=== PATIENT | male | born 1990 | race Caucasian/White ===

== ENCOUNTER 2022-11-27 15:50 | Outpatient (REF) | payer OTHER, SELFPAY ==
[2022-11-27 18:10] LABS: MANUAL DIFF FLAG NO
[2022-11-27 18:18] LABS: INTERNATIONAL NORM RATIO 0.9 (0.9-1.1); Prothrombin Time 10.8 SEC (10.0-13.1)
[2022-11-27 18:36] LABS: Basophils Absolute Auto 0.1 X10*3/uL (0.0-0.2); Basophils Percent Auto 1.4 % (0-2); Eosinophils Absolute Auto 0.3 X10*3/uL (0.0-0.4); Eosinophils Percent Auto 6.1 % (0-4); Hematocrit 49.4 % (42.0-52.0); Imm Gran Abs Auto 0.01 X10*3/uL (0.00-0.03); Imm Gran Pct Auto 0.2 % (0.0-0.4); Lymphocytes Absolute Auto 1.5 X10*3/uL (1.2-4.9); Lymphocytes Percent Auto 26.5 % (20-40); Mean Corpuscular HGB Conc 34.4 g/dl (31.0-36.0); Mean Corpuscular Hemoglobin 33.7 pg (27.0-33.0); Mean Corpuscular Volume 97.8 fL (80.0-98.0); Mean Platelet Volume 12.3 fL (9.4-12.4); Monocytes Absolute Auto 0.7 X10*3/uL (0.1-1.2); Monocytes Percent Auto 11.9 % (2-11); Neutrophils Percent Auto 53.9 % (45-73); Platelet Count 236 X10*3/uL (160-400); Red Blood Count 5.05 X10*6/uL (4.60-5.80); Red Cell Distribution Width 12.7 % (11.0-16.0); White Blood Count 5.6 X10*3/uL (4.8-10.8)
[2022-11-27 18:48] LABS: Estimated Average Glucose 82 mg/dL; Hemoglobin A1c % 4.5 %
[2022-11-27 19:06] LABS: Alanine Aminotransferase 86 U/L (0-40); Albumin Level 4.6 g/dL (3.5-5.0); Alkaline Phosphatase 70 U/L (39-117); Amylase 51 U/L (28-100); Anion Gap 10 (12-20); Aspartate Amino Transferase 37 U/L (5-37); Bilirubin Total 0.6 mg/dL (0.0-1.0); Blood Urea Nitrogen 9 mg/dL (9-16); Calcium 10.1 mg/dL (8.4-10.2); Carbon Dioxide 31 mmol/L (22-29); Chloride 102 mmol/L (96-108); Estimated Glomerular Filt Rate > 60; Gamma Glutamyl Transpeptidase 111 U/L (11-51); Glucose Random 93 mg/dL (60-115); Iron 121 mcg/dL (45-160); Lipase 32 U/L (8-78); Magnesium 2.2 mg/dL (1.6-2.6); Percent Iron Saturation 37 % (15-50); Potassium 5.1 mmol/L (3.3-5.1); Sodium 138 mmol/L (135-145); Total Iron Binding Capacity 323 mcg/dL (228-428); Total Protein 7.8 g/dL (6.5-8.0); Unsaturated Iron Binding 202 ug/dL
[2022-11-27 19:20] LABS: Ferritin 483 ng/mL (20-250)
[2022-12-06 12:13] LABS: Vitamin B1 6 nmol/L (8-30)
== END 2022-11-27 15:51 | disposition home or self-care (01) ==
LOC: HO.MANLDS 15:50
PROVIDERS: Visit Provider Physician Assistant
DX: F10.288 Alcohol dependence with other alcohol-induced disorder (principal)
CPT/HCPCS: 36415; 80053; 82150; 82728; 82977; 83036; 83540; 83690; 83735; 84425; 85025; 85610